=== PATIENT | male | born 1970 | race Caucasian/White ===

== ENCOUNTER 2016-11-05 12:26 | Emergency (ER) | payer OTHER ==
[~2016-11-05] VITALS: Ht 177.8 cm; Wt 75.7 kg
[~2016-11-05 12:26] MED LIST: GABA-112 PO
[2016-11-05 12:28] VITALS: TEMP 36.6; Ht 177.8 cm; Wt 75.7 kg
[2016-11-05] MEDS ORDERED: ALBUTEROL HFA 8 GM INHALER INH ONE (12:45)
--- NOTE | 2016-11-05 13:00 | DIAGNOSTIC IMAGING REPORT ---
RIGHT WRIST 5 VIEWS HISTORY: right wrist pain after falling Right COMPARISON: None. FINDINGS: There is no fracture or dislocation. Mild soft tissue swelling. There is an 8 mm lucency at the mid scaphoid. This may be due to cystic change from long-standing degenerative change or benign intraosseous lesion. Mild cartilage space narrowing at the radiocarpal joint consistent with degenerative change. No radiopaque foreign bodies. IMPRESSION: Mild soft tissue swelling within the right wrist. No acute fracture or dislocation. Electronically signed by: Albert Dorsey M.D. 11/05/2016 12:58 PM Dictated Date/Time: 11/05/2016 12:55 PM
--- NOTE | 2016-11-05 13:11 | DIAGNOSTIC IMAGING REPORT ---
RIGHT ELBOW 3 VIEWS HISTORY: Right elbow pain. COMPARISON: None. FINDINGS: There is no fracture or dislocation. Soft tissues are unremarkable. No elbow effusion. IMPRESSION: No fractures. Electronically signed by: Albert Dorsey M.D. 11/05/2016 1:09 PM Dictated Date/Time: 11/05/2016 1:07 PM
[2016-11-05 13:17] VITALS: BP 128/72; PULSE 58; O2SAT 99
[2016-11-05] MEDS ORDERED: HYDR-5688 PO (13:19)
--- NOTE | 2016-11-05 17:30 | EMERGENCY ROOM VISIT NOTE ---
ED Visit Note First contact with patient: 12:35 CHIEF COMPLAINT: Right elbow and wrist injury History of present illness: This 46-year-old white male patient complains of moderate constant right elbow and wrist pain today after a fall. He states he tripped over his dog and landed on his right arm. The pain is worse with any movement of the wrist. No laceration, no numbness or weakness. No other injury. The fall was not associated with dizziness or fainting. There were no palpitations, no chest pain, no difficulty breathing, no headache, no lightheadedness or weakness. Pain is 7/10. Swelling is visible at the wrist. He states he has been icing it for approximately 4 hours. He has loss of motion of the wrist and is concerned that it is fractured. He also has pain at the tip of the elbow. No shoulder pain or neck pain. Right-hand dominant. REVIEW OF SYSTEMS: GENERAL: No fever or chills, easy fatigue, loss of appetite, or significant weight change. NEUROLOGICAL: No headache, change in mental status, weakness, numbness, or dizziness. PMH: Supplemental sheet was not completed. Previous surgeries: None Medical history: Neuropathy Current medications: Gabapentin Allergies: NKDA Family history: Noncontributory. SOCIAL HISTORY: Patient lives at home. No tobacco use, no EtOH use. PHYSICAL EXAM: Vital Signs: Afebrile. Reviewed and filed in patient's chart. General: Well-developed, well-nourished, middle-aged white male, in no acute distress. Obvious discomfort. He is sitting on a bed. MENTAL STATUS: Alert and oriented. Skin: Warm and dry with good turgor. No rashes or lesions. No ecchymosis or erythema. The patient is not diaphoretic. No abrasions. There is edema present over the dorsum of his right wrist. Musculoskeletal: There is tenderness over the carpals and distal radius with mild swelling. Range of motion is limited secondary to pain. No obvious deformity. No pain with palpation over the metacarpal heads or digits. There is intact motion of the digits, including opposition and circumduction of the thumb. No pain with palpation of the midshaft forearm. No pain with palpation over his radial head. He does have discomfort with palpation over the epicondyles. No pain over the olecranon. Full flexion and extension of the elbow. Full pronation. He lacks approximately 20 of supination secondary to pain. No pain with palpation over the humerus or shoulder. Neurologic: The hand is warm and well perfused and the fingers have normal sensation. Median, radial, and ulnar nerve functions are clearly intact. EMERGENCY DEPARTMENT COURSE: Radiographic images obtained today of the wrist and elbow did not show any fracture. A Velcro wrist splint was placed under my direction to insure proper positioning. DIAGNOSIS: Right wrist sprain. Right elbow contusion DISCHARGE INSTRUCTIONS & TREATMENT: The patient was educated regarding today's findings. Conservative care measures were discussed. Velcro wrist splint was applied to the patient. Wear the wrist splint for 4 - 5 days until the pain subsides. Ice and elevate the wrist intermittently to reduce pain and swelling. Ibuprofen, 600mg and Tylenol 1 g every 6 hours if needed for mild to moderate pain. Prescription was provided for Oneida 5 mg to be used every 6 hours for severe pain. Driving precautions were given. Gentle motion daily. Wrist sprain handout was provided. Followup with your PCP if not improved over the next 7 days. Current/Historical Medications Scheduled Gabapentin (Neurontin), 250 MG PO TID Scheduled PRN Hydrocodone/Acetaminophen 5MG/325MG (Oneida 5MG/325MG), 1-2 TABLET PO Q6H PRN for Pain Allergies Coded Allergies: No Known Allergies (Unverified , 11/05/16) Vital Signs Date Time Temp Pulse Resp B/P Pulse Ox O2 Delivery O2 Flow Rate FiO2 11/05/16 13:17 58 20 128/72 99 Room Air 11/05/16 12:28 36.6 100 18 124/74 98 Room Air Departure Information Impression Primary Impression: Right wrist sprain Additional Impressions: Fall at home, Right elbow contusion Dispostion Home / Self-Care Condition GOOD Prescriptions Hydrocodone/Acetaminophen 5MG/325MG (Oneida 5MG/325MG) Tab 1-2 TABLET PO Q6H Y for Pain, #15 TAB For Initial Treatment Prov: Jim Pierce,P.A. 11/05/16 Forms WORK / SCHOOL INSTRUCTIONS, HOME CARE DOCUMENTATION FORM, MOTRIN USE, TYLENOL USE, IMPORTANT VISIT INFORMATION Patient Instructions A Signature Page, [facility], ED Sprain Wrist Additional Instructions Ice and elevate frequently to reduce pain and swelling Motrin 600 mg every 6 hours with food until pain resolves Tylenol or Oneida 5 mg every 6 hours as needed according to residual pain Gentle motion daily Use the splint for support until pain resolves Follow-up with your PCP for any additional concerns or return to the ED
== END 2016-11-05 13:33 | disposition home or self-care (01) ==
LOC: C.EDB 12:27 → C.EDD 13:33
DX: S63.501A Unspecified sprain of right wrist, initial encounter (principal); S50.01XA Contusion of right elbow, initial encounter; W01.0XXA Fall on same level from slipping, tripping and stumbling without subsequent striking against object, initial encounter; Y93.89 Activity, other specified; Y92.019 Unspecified place in single-family (private) house as the place of occurrence of the external cause; Y99.8 Other external cause status

== ENCOUNTER 2016-12-08 20:08 | Emergency (ER) | payer OTHER ==
[~2016-12-08] VITALS: Ht 180.3 cm; Wt 79.6 kg
[~2016-12-08 20:08] MED LIST changes: +HYDR-5688 PO
[2016-12-08 20:13] VITALS: TEMP 36.7; Ht 180.3 cm; Wt 79.6 kg
[2016-12-08] MEDS ORDERED: KETOROLAC TROMETHAMINE 60 MG/2 ML VIAL IM STA (20:40)
--- NOTE | 2016-12-08 21:34 | DIAGNOSTIC IMAGING REPORT ---
C-SPINE ROUTINE 4 OR 5 VIEWS CLINICAL HISTORY: Recent fall. Left upper extremity pain. COMPARISON STUDY: No previous studies for comparison. FINDINGS: C7 is partially obscured on this exam. No acute fracture is identified within visualized portions of the cervical spine. Vertebral body heights are maintained. Facet joints are intact. Craniocervical junction is intact. There is no abnormalities of the prevertebral soft tissues. IMPRESSION: 1. Partial obscuration of C7. No fracture or subluxation within visualized portions of the cervical spine. 2. No significant degenerative disc disease or facet arthrosis identified. Electronically signed by: Alvarado Rachel M.D. 12/08/2016 9:32 PM Dictated Date/Time: 12/08/2016 9:31 PM
--- NOTE | 2016-12-08 21:35 | DIAGNOSTIC IMAGING REPORT ---
LEFT SHOULDER MIN 2 VIEWS ROUTINE CLINICAL HISTORY: Left upper extremity pain. Recent fall. COMPARISON: None FINDINGS: Alignment of the left shoulder is anatomic. No acute fracture is identified. There is mild AC joint arthritis and minimal humeral joint arthritis. IMPRESSION: 1. No acute fracture or dislocation of the left shoulder. 2. Mild arthritis of the left acromioclavicular and glenohumeral joints. Electronically signed by: Alvarado Rachel M.D. 12/08/2016 9:33 PM Dictated Date/Time: 12/08/2016 9:33 PM
[2016-12-08] MEDS ORDERED: OXYCODONE IR HOME PACK PO ONE (21:45)
[2016-12-08] MEDS ORDERED: OXYC1TAB3 PO (21:45)
[2016-12-08] MEDS ORDERED: METH4PAK PO (21:45)
[2016-12-08 21:58] VITALS: BP 149/73; PULSE 49; O2SAT 96
--- NOTE | 2016-12-09 00:04 | EMERGENCY ROOM VISIT NOTE ---
History First contact with patient: 20:33 Chief Complaint: SHOULDER PAIN Stated Complaint: SHARP PAIN IN LF SHOULDER/ARM/ELBOW History of Present Illness The patient is a 46 year old male who presents to the Emergency Room with complaints of severe pain in his neck, left shoulder and extending into the left upper extremity with tingling and numbness of his hand and fingers. The patient reports a prior history of chronic back pain. He also occasionally has neck pain. He reports falling in the snow yesterday, causing worsening symptoms. He denies any chest pain, shortness of breath or worsening pain with deep breathing. He denies any recent illnesses, fevers or chills. He rates his discomfort a 9 out of 10. Review of Systems 10 system review was performed and was negative except for pertinent positives and negatives as indicated in history of present illness Past Medical/Surgical History Medical Problems: (1) Anxiety State Nos (2) Drug Withdrawal (3) Lumbago (4) Opioid Dependence-Unspec (5) Pneumonia, Organism Nos (6) Tobacco Use Disorder Family History Cancer Social History Smoking Status: Current Every Day Smoker Alcohol Use: occasionally Drug Use: none Marital Status: Housing Status: lives with family Occupation Status: disabled Current/Historical Medications Scheduled Methylprednisolone (Medrol Dosepak), 0 PO DAILY Scheduled PRN Oxycodone Ir (Roxicodone Ir), 1-2 TAB PO Q4H PRN for Pain Allergies Coded Allergies: No Known Allergies (Unverified , 11/05/16) Physical Exam Vital Signs Date Time Temp Pulse Resp B/P Pulse Ox O2 Delivery O2 Flow Rate FiO2 12/08/16 21:58 49 16 149/73 96 12/08/16 20:13 36.7 55 18 151/84 96 Room Air Pain Rating (0-10): 7.0 Physical Exam CONSTITUTIONAL: Healthy and well nourished. Alert and oriented X 3 with positive affect. Patient appears in moderate discomfort from pain. HEENT: Normocephalic, atraumatic. Pupils equal, round and reactive. No subconjunctival hemorrhage, epistaxis, hemotympanum, raccoon's eyes or Gordillo sign. NECK: The patient has mild discomfort of the left lower neck with movement. No palpable muscle rigidity. RESPIRATORY: Clear to auscultation bilaterally with no wheezing, crackles, rhonchi or stridor. CARDIOVASCULAR: Regular rate and rhythm with no murmurs, rubs or gallops. GASTROINTESTINAL: Bowel sounds present in all quadrants. Soft and nontender to palpation. MUSCULOSKELETAL: Examination shows minimal discomfort with range of motion of the left shoulder. No scapular winging. No tenderness to palpation of the ribs , clavicle, bicipital groove or acromioclavicular joint. Left upper extremity distal pulses are intact. INTEGUMENTARY: No rash or other significant dermatologic conditions noted. NEUROLOGIC: Left hand median, radial and ulnar motor and sensory are intact. Medical Decision & Procedures ER Provider Diagnostic Interpretation: My interpretation of cervical spine and left shoulder x-rays does not show any acute fractures or dislocations. Radiologist reports were also reviewed. Medications Administered Medications (Trade) Dose Ordered Sig/Dixon Route Start Time Stop Time Status Last Admin Dose Admin Ketorolac Tromethamine (Toradol Inj) 60 mg NOW STAT IM 12/08/16 20:40 12/08/16 20:42 DC 12/08/16 20:59 60 MG Oxycodone HCl (Roxicodone Immediate Rel 5MG Home Pack) 1 homepack UD ONCE PO 12/08/16 21:45 12/08/16 21:46 DC 12/08/16 21:54 1 HOMEPACK Prednisone (PredniSONE TAB) 60 mg NOW STAT PO 12/08/16 21:42 12/08/16 21:43 DC 12/08/16 21:54 60 MG ED Course Patient history and physical exam were performed. Nurse's notes were reviewed. The patient reports that he drove to the emergency department. He was administered Toradol 60 mg IM. X-rays of the cervical spine and left shoulder were normal. The patient was encouraged to follow up with his family doctor for further evaluation and management. I did review the [place] Prescription Drug Monitoring Program, showing that the patient has previously been on Suboxone and other opioids. Review medical records also shows that the patient has had a prior history of opioid dependence and withdrawal. The patient reports that he is now clean, but occasionally does aid pain medications for his back. Review of the [place] Prescription Drug Monitoring Program does not show any recent opioid prescription overuse. The patient was provided a home pack and prescription for OxyIR 5 mg, dispensed #15 with no refills. He was also encouraged to alternate ibuprofen and Tylenol for baseline pain relief. He was instructed to follow-up with his PCP for further management. The patient was happy with plan of care, voiced understanding of all discharge instructions, and rated his pain a 6 out of 10 at the time of discharge. [facility] Drug Monitoring Program Search Results: patient reviewed within database, see additional documentation Impression Primary Impression: Left cervical radiculopathy Departure Information Dispostion Home / Self-Care Condition GOOD Prescriptions Oxycodone Ir (Roxicodone Ir) 5 Mg Tab 1-2 TAB PO Q4H Y for Pain, #15 TAB For Initial Treatment Prov: Garrett Luna PA 12/08/16 Methylprednisolone (MEDROL DOSEPAK) 4 Mg Chris 0 PO DAILY, #1 PKT Prov: Garrett Luna PA 12/08/16 Forms HOME CARE DOCUMENTATION FORM, IMPORTANT VISIT INFORMATION Patient Instructions My [facility], ED Cervical Radiculopathy Additional Instructions Take prednisone as prescribed. Ibuprofen 800 mg and/or Tylenol 1000 mg every 8 hours. You may also alternate these medications for more effective pain relief: Ibuprofen --4 HRS--> Tylenol --4 HRS--> ibuprofen --4 HRS--> Tylenol .... OxyIR if needed for worse pain. Do not drink or drive while taking OxyIR. Follow-up with your PCP for further reevaluation and management.
== END 2016-12-08 22:00 | disposition home or self-care (01) ==
LOC: C.EDB 20:09 → C.EDD 22:00
DX: M54.12 Radiculopathy, cervical region (principal); M54.5 Low back pain; G89.29 Other chronic pain; F41.9 Anxiety disorder, unspecified; F17.200 Nicotine dependence, unspecified, uncomplicated; Z80.9 Family history of malignant neoplasm, unspecified

== ENCOUNTER 2017-10-29 15:23 | Emergency (ER) | payer OTHER ==
[~2017-10-29] VITALS: Ht 180.3 cm; Wt 77.7 kg
[2017-10-29 15:30] VITALS: TEMP 36.5; Ht 180.3 cm; Wt 77.7 kg
[2017-10-29] MEDS ORDERED: METH10CO2 PO (15:47)
[2017-10-29] MEDS ORDERED: SODIUM CHLORIDE 0.9% 1000ML 2,000 ML IV STA (15:54)
[2017-10-29] MEDS ORDERED: KETOROLAC TROMETHAMINE 30 MG/ML VIAL IV STA (15:54)
[2017-10-29] MEDS ORDERED: ONDANSETRON INJ 2 MG/ML 2 ML VIAL IV STA ×2 (15:54→18:23)
[2017-10-29] MEDS ORDERED: MoRPHine SULFATE 4 MG/ML 1 ML CARP\\VIAL IV STA (15:54)
[2017-10-29] MEDS ORDERED: GI COCKTAIL PO STA (15:56)
[2017-10-29] MEDS ORDERED: OPTIRAY 320 IV PRN (16:00)
[2017-10-29] MEDS ORDERED: LIDOCAINE HCL 2% VISC SOLN 20 ML UDC ONE (16:02)
[2017-10-29] MEDS ORDERED: ALUMINUM/MAGNESIUM SUSP 30 ML UDC ONE (16:03)
[2017-10-29 16:19] LABS: BASO % 0.1 %; BASO ABS # 0.01 K/uL (0-0.2); HEMATOCRIT 36.6 % (42-52); HEMOGLOBIN 12.8 g/dL (14.0-18.0); IG# 0.02 K/uL (0.00-0.02); LYMPH % 17.6 %; LYMPH ABS # 1.84 K/uL (1.2-3.4); MEAN CELL VOLUME 87.6 fL (80-100); MEAN CORPUSCULAR HEMOGLOBIN 30.6 pg (25-34); MEAN PLATELET VOLUME 9.2 fL (7.4-10.4); MONO % 5.6 %; MONO ABS # 0.59 K/uL (0.11-0.59); NEUT % 76.5 %; NEUT ABS # 8.01 K/uL (1.4-6.5); PLATELET COUNT 250 K/uL (130-400); RED CELL DISTRIBUTION WIDTH SD 41.9 fL (36.4-46.3); WHITE BLOOD COUNT 10.47 K/uL (4.8-10.8)
[2017-10-29 16:31] LABS: ALBUMIN 4.3 gm/dl (3.4-5.0); ALT/SGPT 18 U/L (12-78); BLOOD UREA NITROGEN 16 mg/dl (7-18); CALCIUM 9.4 mg/dl (8.5-10.1); CARBON DIOXIDE 23 mmol/L (21-32); CREATININE 0.82 mg/dl (0.60-1.40); GLUCOSE 114 mg/dl (70-99); LIPASE 75 U/L (73-393); POTASSIUM 3.2 mmol/L (3.5-5.1); SODIUM 131 mmol/L (136-145)
[2017-10-29 16:36] LABS: ALKALINE PHOSPHATASE 79 U/L (45-117); AST/SGOT 25 U/L (15-37); TOTAL PROTEIN 7.5 gm/dl (6.4-8.2)
--- NOTE | 2017-10-29 16:44 | DIAGNOSTIC IMAGING REPORT ---
SINGLE VIEW CHEST CLINICAL HISTORY: Atypical chest pain. FINDINGS: An AP, portable, upright chest radiograph is compared to study dated 07/14/2015. Correlation is made with chest CT dated 08/15/2010. The examination is degraded by portable technique and patient rotation. The heart is enlarged. The pulmonary vasculature is noncongested. The lungs and pleural spaces are clear. No pneumothorax is seen. The bony thorax is grossly intact. IMPRESSION: Mild cardiac enlargement with no acute cardiopulmonary abnormality. Electronically signed by: Glenn Méndez M.D. 10/29/2017 4:43 PM Dictated Date/Time: 10/29/2017 4:42 PM
--- NOTE | 2017-10-29 17:48 | DIAGNOSTIC IMAGING REPORT ---
CT SCAN OF THE ABDOMEN AND PELVIS WITH IV CONTRAST CLINICAL HISTORY: Generalized abdominal pain. COMPARISON STUDY: No priors. TECHNIQUE: Following the IV administration of 92 cc of Optiray 320, CT scan of the abdomen and pelvis is performed from the lung bases to the proximal femora. Images are reviewed in the axial, sagittal, and coronal planes. IV contrast was administered without complication. A dose lowering technique was utilized adhering to the principles of ALARA. CT DOSE: 406.52 mGy.cm FINDINGS: Lung bases: The heart is top normal in size and without pericardial effusion. The lung bases are clear noting dependent atelectasis. There is a small hiatal hernia. Mild wall thickening is questioned in the distal esophagus. Liver: The contrast-enhanced liver is normal in size, contour, and attenuation. There is mild central intrahepatic biliary ductal dilatation. The hepatic veins and portal veins are patent. Gallbladder: Gallstones are noted. The gallbladder is mildly distended but otherwise normal in appearance. The common bile duct is dilated measuring up to 12 mm. Spleen: Normal in size and attenuation. Pancreas: Unremarkable. Adrenal glands: Unremarkable. Kidneys: The contrast enhanced kidneys are normal in size and without hydronephrosis. The kidneys enhance symmetrically. There is a 9 mm nonobstructing calculus in the left upper pole. Abdominal vasculature: The abdominal aorta is normal in course and caliber noting mild to moderate age-advanced atherosclerotic calcification. Bowel: There is moderate to severe constipation. There is a large volume of stool in the rectum. No bowel obstruction is seen. The appendix is not identified. Peritoneum: There is no intraperitoneal free air or abdominal ascites. Lymphadenopathy: None. Pelvic viscera: The bladder, prostate, and seminal vesicles are normal as visualized. Skeletal structures: There are postoperative changes from L4 -S1 spinal fusion. No lytic or blastic lesions are seen. IMPRESSION: 1. Moderate to severe constipation. No bowel obstruction is identified. 2. Cholelithiasis without CT evidence of acute cholecystitis. There is nonspecific intra and extrahepatic biliary ductal dilatation. Correlation with clinical findings and serum bilirubin levels will be required. If further assessment is desired then ultrasound would be appropriate. 3. Nonobstructing left renal calculus. 4. Circumferential wall thickening is suggested in the distal esophagus. Correlate clinically for evidence of esophagitis. If further assessment is desired then endoscopy would be appropriate. 5. Additional findings as above. Electronically signed by: Glenn Méndez M.D. 10/29/2017 5:47 PM Dictated Date/Time: 10/29/2017 5:38 PM
--- NOTE | 2017-10-29 19:21 | DIAGNOSTIC IMAGING REPORT ---
ULTRASOUND RIGHT UPPER QUADRANT ABDOMEN CLINICAL HISTORY: Common bile duct dilatation. Cholelithiasis. COMPARISON STUDY: Abdominal CT dated 10/29/2017. TECHNIQUE: Real-time, grayscale, and color flow sonography of the right upper quadrant of the abdomen was performed. Images are reviewed in the transverse and longitudinal planes. FINDINGS: Liver: The liver is normal in size and echotexture. There is no intrahepatic biliary ductal dilatation. The main portal vein is patent. Gallbladder: Shadowing calcified gallstones are identified. There is no gallbladder wall thickening or pericholecystic fluid. A sonographic Thakur's sign is reportedly absent. The common bile duct measures up to 0.6 cm in diameter. Pancreas: Visualized portions of the pancreatic head are normal in appearance. The majority of the pancreas was not well visualized. There is prominence of the pancreatic duct which measures up to 4 mm the pancreas. Right kidney: Survey images of the right kidney demonstrate normal size and echotexture. There is no hydronephrosis. Ascites: None. IMPRESSION: Cholelithiasis without sonographic evidence of acute cholecystitis. Electronically signed by: Glenn Méndez M.D. 10/29/2017 7:19 PM Dictated Date/Time: 10/29/2017 7:18 PM
[2017-10-29] MEDS ORDERED: ONDA4TAB46 PO (19:46)
[2017-10-29 20:00] VITALS: BP 149/78; PULSE 52; O2SAT 99
[2017-10-29] MEDS ORDERED: ONDANSETRON HOME PACK 4MG OD TAB PO ONE (20:00)
--- NOTE | 2017-10-29 21:27 | EMERGENCY ROOM VISIT NOTE ---
History Report prepared by Renéeibelliott: Matthew Pickens Under the Supervision of: Dr. Harjeet Concepcion D.O. First contact with patient: 15:40 Chief Complaint: VOMITING Stated Complaint: ILLNESS History of Present Illness The patient is a 47 year old male who presents to the Emergency Room with complaints of intermittent vomiting that began two days ago. He rates his discomfort as a 7/10 in severity. The patient states that he became cold two days ago and then started to vomit. He reports that he has been vomiting water, any food he eats, and bile. The patient states he has also been experiencing abdominal pain starting yesterday. He reports that he began to experience chest pain following his abdominal pain, which he describes as a burning sensation. The patient reports that he has also been experiencing rhinorrhea. He states that he vomited 10-15 times today, with his last episode 10 minutes ago. He denies headache, change in vision, fevers, cough, shortness of breath, diarrhea , pain with urination, and melena. The patient states that his last urination was yesterday and his last bowel movement was two days ago. He reports a history of an appendectomy. The patient denies a history of diabetes, hyperlipidemia, hypertension, cholecystectomy, and other surgeries. He denies drugs, alcohol, and sick contact. Source of History: patient Onset: two days ago Position: other (global) Symptom Intensity: 7/10 Timing: intermittent Associated Symptoms: + chest pain, + nausea, + abdominal pain, No fevers, No headache, No cough, No melena, No diarrhea, No urinary symptoms Review of Systems See HPI for pertinent positives & negatives. A total of 10 systems reviewed and were otherwise negative. Past Medical & Surgical Medical Problems: (1) Anxiety State Nos (2) Drug Withdrawal (3) Lumbago (4) Opioid Dependence-Unspec (5) Pneumonia, Organism Nos (6) Tobacco Use Disorder Family History Cancer Social History Smoking Status: Current Every Day Smoker Alcohol Use: occasionally Drug Use: none Marital Status: Housing Status: lives with family Occupation Status: disabled Current/Historical Medications Scheduled Methadone Hcl (Methadose), Unknown Dose PO DAILY Scheduled PRN Ondansetron Hcl (Zofran), 4 MG PO TID PRN for Nausea Allergies Coded Allergies: No Known Allergies (Unverified , 10/29/17) Physical Exam Vital Signs Date Time Temp Pulse Resp B/P (MAP) Pulse Ox O2 Delivery O2 Flow Rate FiO2 10/29/17 20:00 52 17 149/78 99 10/29/17 19:05 63 17 153/85 99 Room Air 10/29/17 17:32 55 18 164/79 99 Room Air 10/29/17 15:30 36.5 71 20 140/81 100 Room Air Physical Exam GENERAL: Sitting up in bed, tachypneic, in moderate distress, holding abdomen. EYE EXAM: normal conjunctiva. OROPHARYNX: no exudate, no erythema, lips, buccal mucosa, and tongue normal and mucous membranes are dry NECK: supple, no nuchal rigidity, no adenopathy, non-tender LUNGS: Clear to auscultation. Normal chest wall mechanics HEART: no murmurs, S1 normal and S2 normal CHEST: Reproducible chest wall tenderness anteriorly. ABDOMEN: abdomen soft, old scarring in right lower quadrant, mild diffuse tenderness, normo-active bowel sounds, no masses, no rebound or guarding. BACK: Back is symmetrical on inspection and there is no deformity, no midline tenderness, no CVA tenderness. SKIN: no rashes and no bruising UPPER EXTREMITIES: upper extremities are grossly normal. LOWER EXTREMITIES: No pitting edema. NEURO EXAM: Normal sensorium, cranial nerves II-XII grossly intact, normal speech, no gross weakness of arms, no gross weakness of legs. Gross sensation intact. Medical Decision & Procedures ER Provider Diagnostic Interpretation: Radiology results as stated below per my review and the radiologist's interpretation: CT SCAN OF THE ABDOMEN AND PELVIS WITH IV CONTRAST CLINICAL HISTORY: Generalized abdominal pain. COMPARISON STUDY: No priors. TECHNIQUE: Following the IV administration of 92 cc of Optiray 320, CT scan of the abdomen and pelvis is performed from the lung bases to the proximal femora. Images are reviewed in the axial, sagittal, and coronal planes. IV contrast was administered without complication. A dose lowering technique was utilized adhering to the principles of ALARA. CT DOSE: 406.52 mGy.cm FINDINGS: Lung bases: The heart is top normal in size and without pericardial effusion. The lung bases are clear noting dependent atelectasis. There is a small hiatal hernia. Mild wall thickening is questioned in the distal esophagus. Liver: The contrast-enhanced liver is normal in size, contour, and attenuation. There is mild central intrahepatic biliary ductal dilatation. The hepatic veins and portal veins are patent. Gallbladder: Gallstones are noted. The gallbladder is mildly distended but otherwise normal in appearance. The common bile duct is dilated measuring up to 12 mm. Spleen: Normal in size and attenuation. Pancreas: Unremarkable. Adrenal glands: Unremarkable. Kidneys: The contrast enhanced kidneys are normal in size and without hydronephrosis. The kidneys enhance symmetrically. There is a 9 mm nonobstructing calculus in the left upper pole. Abdominal vasculature: The abdominal aorta is normal in course and caliber noting mild to moderate age-advanced atherosclerotic calcification. Bowel: There is moderate to severe constipation. There is a large volume of stool in the rectum. No bowel obstruction is seen. The appendix is not identified. Peritoneum: There is no intraperitoneal free air or abdominal ascites. Lymphadenopathy: None. Pelvic viscera: The bladder, prostate, and seminal vesicles are normal as visualized. Skeletal structures: There are postoperative changes from L4 -S1 spinal fusion. No lytic or blastic lesions are seen. IMPRESSION: 1. Moderate to severe constipation. No bowel obstruction is identified. 2. Cholelithiasis without CT evidence of acute cholecystitis. There is nonspecific intra and extrahepatic biliary ductal dilatation. Correlation with clinical findings and serum bilirubin levels will be required. If further assessment is desired then ultrasound would be appropriate. 3. Nonobstructing left renal calculus. 4. Circumferential wall thickening is suggested in the distal esophagus. Correlate clinically for evidence of esophagitis. If further assessment is desired then endoscopy would be appropriate. 5. Additional findings as above. Electronically signed by: Glenn Méndez M.D. 10/29/2017 5:47 PM Dictated Date/Time: 10/29/2017 5:38 PM SINGLE VIEW CHEST CLINICAL HISTORY: Atypical chest pain. FINDINGS: An AP, portable, upright chest radiograph is compared to study dated 07/14/2015. Correlation is made with chest CT dated 08/15/2010. The examination is degraded by portable technique and patient rotation. The heart is enlarged. The pulmonary vasculature is noncongested. The lungs and pleural spaces are clear. No pneumothorax is seen. The bony thorax is grossly intact. IMPRESSION: Mild cardiac enlargement with no acute cardiopulmonary abnormality. Electronically signed by: Glenn Méndez M.D. 10/29/2017 4:43 PM Dictated Date/Time: 10/29/2017 4:42 PM ULTRASOUND RIGHT UPPER QUADRANT ABDOMEN CLINICAL HISTORY: Common bile duct dilatation. Cholelithiasis. COMPARISON STUDY: Abdominal CT dated 10/29/2017. TECHNIQUE: Real-time, grayscale, and color flow sonography of the right upper quadrant of the abdomen was performed. Images are reviewed in the transverse and longitudinal planes. FINDINGS: Liver: The liver is normal in size and echotexture. There is no intrahepatic biliary ductal dilatation. The main portal vein is patent. Gallbladder: Shadowing calcified gallstones are identified. There is no gallbladder wall thickening or pericholecystic fluid. A sonographic Thakur's sign is reportedly absent. The common bile duct measures up to 0.6 cm in diameter. Pancreas: Visualized portions of the pancreatic head are normal in appearance. The majority of the pancreas was not well visualized. There is prominence of the pancreatic duct which measures up to 4 mm the pancreas. Right kidney: Survey images of the right kidney demonstrate normal size and echotexture. There is no hydronephrosis. Ascites: None. IMPRESSION: Cholelithiasis without sonographic evidence of acute cholecystitis. Electronically signed by: Glenn Méndez M.D. 10/29/2017 7:19 PM Dictated Date/Time: 10/29/2017 7:18 PM Laboratory Results 10/29/17 16:00 Red Blood Count 4.18, Mean Corpuscular Volume 87.6, Mean Corpuscular Hemoglobin 30.6, Mean Corpuscular Hemoglobin Concent 35.0, Mean Platelet Volume 9.2, Neutrophils (%) (Auto) 76.5, Lymphocytes (%) (Auto) 17.6, Monocytes (%) (Auto) 5.6, Eosinophils (%) (Auto) 0.0, Basophils (%) (Auto) 0.1, Neutrophils # (Auto) 8.01, Lymphocytes # (Auto) 1.84, Monocytes # (Auto) 0.59, Eosinophils # (Auto) 0.00, Basophils # (Auto) 0.01 10/29/17 16:00 Test 10/29/17 16:00 10/29/17 19:00 White Blood Count 10.47 K/uL (4.8-10.8) Red Blood Count 4.18 M/uL (4.7-6.1) Hemoglobin 12.8 g/dL (14.0-18.0) Hematocrit 36.6 % (42-52) Mean Corpuscular Volume 87.6 fL (80-100) Mean Corpuscular Hemoglobin 30.6 pg (25-34) Mean Corpuscular Hemoglobin Concent 35.0 g/dl (32-36) Platelet Count 250 K/uL (130-400) Mean Platelet Volume 9.2 fL (7.4-10.4) Neutrophils (%) (Auto) 76.5 % Lymphocytes (%) (Auto) 17.6 % Monocytes (%) (Auto) 5.6 % Eosinophils (%) (Auto) 0.0 % Basophils (%) (Auto) 0.1 % Neutrophils # (Auto) 8.01 K/uL (1.4-6.5) Lymphocytes # (Auto) 1.84 K/uL (1.2-3.4) Monocytes # (Auto) 0.59 K/uL (0.11-0.59) Eosinophils # (Auto) 0.00 K/uL (0-0.5) Basophils # (Auto) 0.01 K/uL (0-0.2) RDW Standard Deviation 41.9 fL (36.4-46.3) RDW Coefficient of Variation 13.0 % (11.5-14.5) Immature Granulocyte % (Auto) 0.2 % Immature Granulocyte # (Auto) 0.02 K/uL (0.00-0.02) Anion Gap 12.0 mmol/L (3-11) Est Creatinine Clear Calc Drug Dose 116.0 ml/min Estimated GFR () 120.3 Estimated GFR (Non- 103.8 BUN/Creatinine Ratio 20.1 (10-20) Calcium Level 9.4 mg/dl (8.5-10.1) Total Bilirubin 0.8 mg/dl (0.2-1) Direct Bilirubin 0.2 mg/dl (0-0.2) Aspartate Amino Transf (AST/SGOT) 25 U/L (15-37) Alanine Aminotransferase (ALT/SGPT) 18 U/L (12-78) Alkaline Phosphatase 79 U/L (45-117) Troponin I < 0.015 ng/ml (0-0.045) Total Protein 7.5 gm/dl (6.4-8.2) Albumin 4.3 gm/dl (3.4-5.0) Lipase 75 U/L (73-393) Urine Color YELLOW Urine Appearance CLEAR (CLEAR) Urine pH 8.0 (4.5-7.5) Urine Specific Dunlap 1.025 (1.000-1.030) Urine Protein NEG (NEG) Urine Glucose (UA) NEG (NEG) Urine Ketones TRACE (NEG) Urine Occult Blood NEG (NEG) Urine Nitrite NEG (NEG) Urine Bilirubin NEG (NEG) Urine Urobilinogen NEG (NEG) Urine Leukocyte Esterase NEG (NEG) Urine WBC (Auto) 0 /hpf (0-5) Urine RBC (Auto) 0-4 /hpf (0-4) Urine Hyaline Casts (Auto) 0 /lpf (0-5) Urine Epithelial Cells (Auto) 10-20 /lpf (0-5) Urine Bacteria (Auto) NEG (NEG) Laboratory results per my review. Medications Administered Medications (Trade) Dose Ordered Sig/Dixon Route Start Time Stop Time Status Last Admin Dose Admin Sodium Chloride 2,000 ml @ 999 mls/hr Q2H1M STAT IV 10/29/17 15:54 10/29/17 17:54 DC 10/29/17 16:08 999 MLS/HR Ondansetron HCl (Zofran Inj) 4 mg NOW STAT IV 10/29/17 15:54 10/29/17 15:57 DC 10/29/17 16:10 4 MG Ketorolac Tromethamine (Toradol Inj) 30 mg NOW STAT IV 10/29/17 15:54 10/29/17 15:57 DC 10/29/17 16:10 30 MG Morphine Sulfate (MoRPHine SULFATE INJ) 4 mg NOW STAT IV 10/29/17 15:54 10/29/17 15:57 DC 10/29/17 16:11 4 MG Lidocaine HCl (Viscous Lidocaine 2% Soln) 20 ml STK-MED ONCE .ROUTE 10/29/17 16:02 10/29/17 16:03 DC 10/29/17 16:11 20 ML Al Hydroxide/Mg Hydroxide (Maalox Susp) 30 ml STK-MED ONCE .ROUTE 10/29/17 16:03 10/29/17 16:04 DC 10/29/17 16:11 30 ML Ondansetron HCl (Zofran Inj) 4 mg NOW STAT IV 10/29/17 18:23 10/29/17 18:24 DC 10/29/17 18:54 4 MG Ondansetron HCl (ZOFRAN ODT 4MG Home Pack) 1 homepack UD ONCE PO 10/29/17 20:00 10/29/17 20:01 DC 10/29/17 20:00 1 HOMEPACK ECG Indication: chest pain Rate (beats per minute): 65 Rhythm: sinus rhythm Findings: no ectopy, other (Normal axis, poor baseline inferior) ED Course ED COURSE: Vital signs were reviewed and showed hypertensive. The patients medical record was reviewed The above diagnostic studies were performed and reviewed. ED treatments and interventions as stated above. 1548: The patient was evaluated in room C05. A complete history and physical examination was performed. 1554: Ordered Morphine Sulfate 4 mg IV, Toradol Injection 30 mg IV, Zofran INjection 4 mg IV, Sodium Chloride 2000 ml @ 999 mls/hr IV. 1556: Ordered Gi Cocktail 24 ml PO. 1602: Ordered Lidocaine HCl 20 ml IV. 1603: Ordered Maalox Susp 30 ml IV. 1820: I reevaluated the patient and his chest discomfort is relieved after the GI cocktail. He has not vomited here in the ED. 1822: Ordered Zofran Injection 4 mg IV. 1943: Upon reevaluation, the patient is feeling better and handling fluids. I discussed the findings and the treatment plan with the patient. He verbalizes agreement and understanding. The patient was discharged home. 1999: Ordered Ondansetron HCl 1 homepack PO. Medical Decision Differential diagnoses includes but is not limited to gastritis, peptic ulcer disease, GERD, gallbladder disease, pancreatitis, small bowel obstruction, acute coronary syndrome, pericarditis, ischemic bowel, irritable bowel disease, irritable bowel syndrome, appendicitis, diverticulitis, malignancy, hernia, urinary tract infection, torsion, [/ectopic (if female)], perforation, trauma, infectious. Patient is a 47-year-old male who presents to ER for diffuse muscle cramps associated with vomiting. He has been unable to keep anything down for the past 24 hours. No diarrhea. Vitals were fairly unremarkable. CBC was unremarkable. BMP shows mild hyponatremia and hypokalemia. Do favor secondary to dehydration. LFTs all bilirubin, troponin and lipase normal. Chest pain present for longer than 8 hours and is reproducible. Chest x-ray unremarkable. EKG nondiagnostic. UA was negative. Patient was given 2 L normal saline along with Zofran. CT did show slight fullness in the biliary system. Ultrasound was performed was unremarkable. Patient was able tolerate fluids orally. He was discharged with Zofran to follow-up with PCP. Discussed with Pt concerning signs and symptoms to watch out for. Pt was instructed to follow up with their PCP and discussed with the patient their option to return to the ED at anytime for persistent or worsening symptoms. The appropriate anticipatory guidance and out-patient management, including indications for return to the emergency department, were explained at length to the patient and understood. Medication Reconcilliation Current Medication List: was personally reviewed by me Blood Pressure Screening Patient's blood pressure: Elevated blood pressure Blood pressure disposition: Elevated BP felt to be situational Impression Primary Impression: Vomiting Additional Impression: Hypokalemia Scribe Attestation The scribe's documentation has been prepared under my direction and personally reviewed by me in its entirety. I confirm that the note above accurately reflects all work, treatment, procedures, and medical decision making performed by me. Departure Information Dispostion Home / Self-Care Prescriptions Ondansetron Hcl (ZOFRAN) 4 Mg Tab 4 MG PO TID Y for Nausea, #30 TAB Prov: Harjeet Concepcion, DO 10/29/17 Referrals Jana Burrell M.D. (PCP) Forms HOME CARE DOCUMENTATION FORM, IMPORTANT VISIT INFORMATION Patient Instructions ED Nausea Vomiting, My [facility] Additional Instructions Please follow up with your primary care doctor with in the next 24 hours. Any worsening of your symptoms, please return to the ED immediately. This includes any fevers greater than 100.4, worsening pain, chest pain, shortness breath, persistent nausea, vomiting, unable to eat or drink, or any other concerning signs or symptoms from your standpoint. Please take Zofran as needed for nausea and vomiting. Problem Qualifiers Primary Impression: Vomiting Vomiting type: unspecified Vomiting Intractability: unspecified Nausea presence: with nausea Qualified Codes: R11.2 - Nausea with vomiting, unspecified
== END 2017-10-29 20:00 | disposition home or self-care (01) ==
LOC: C.EDB 15:25 → C.EDC 20:00
DX: R11.10 Vomiting, unspecified (principal); E87.6 Hypokalemia; E87.1 Hypo-osmolality and hyponatremia; R07.89 Other chest pain; F17.200 Nicotine dependence, unspecified, uncomplicated; Z79.891 Long term (current) use of opiate analgesic; Z90.89 Acquired absence of other organs; Z80.9 Family history of malignant neoplasm, unspecified

== ENCOUNTER 2018-01-07 12:08 | Emergency (ER) | payer OTHER ==
[~2018-01-07] VITALS: Ht 177.8 cm; Wt 77.3 kg
[~2018-01-07 12:08] MED LIST changes: -GABA-112 PO; -HYDR-5688 PO; +METH10CO2 PO; +ONDA4TAB46 PO
[2018-01-07 12:27] VITALS: TEMP 36.7; Ht 177.8 cm; Wt 77.3 kg
--- NOTE | 2018-01-07 12:54 | EMERGENCY ROOM VISIT NOTE ---
ED Visit Note First contact with patient: 12:36 CHIEF COMPLAINT: Right rib pain HISTORY OF PRESENTING ILLNESS: This is a 47-year-old male who presents the emergency department with complaint of right rib pain after a fall 3 days ago. He states he was walking his dog and tripped, fell forward and landed on his front right ribs. Denies hitting head, denies LOC, denies any other injuries from the fall. He describes the pain as constant, dull, throbbing, 6/10. He has taken Motrin and tried heat with some improvement. He denies any headache, neck pain, shortness of breath, hemoptysis, abdominal pain, vomiting or diarrhea , urinary complaints, or rash. He reports a history of traumatic back injury and fusion surgery several years ago, and has chronic back pain from this. He denies any worsening of his back pain after the fall. REVIEW OF SYSTEMS: A complete 10 point review of systems was reviewed with the patient with pertinent positives and negatives as per history of present illness. All else were negative. PAST MEDICAL HISTORY: Reviewed in chart. SOCIAL HISTORY: Lives at home. He is a current everyday smoker. ALLERGIES: No known allergies. PHYSICAL EXAM: CONSTITUTIONAL: Pleasant and cooperative. No acute distress. Well appearing and well nourished. HEENT: Normocephalic, atraumatic. Pupils equal, round and reactive to light, EOMI. TMs normal. Pharynx normal. NECK: Supple, full active range of motion without discomfort. RESPIRATORY: Diminished in the bases, but otherwise clear to auscultation bilaterally with no wheezing, crackles, rhonchi or stridor. Equal expansion bilaterally. CARDIOVASCULAR: Regular rate and rhythm with no murmurs, rubs or gallops. Normal peripheral perfusion. No edema. CHEST WALL: Tenderness to palpation over the right anterior ribs 3 through 7, no ecchymosis, abrasions, or swelling noted. No crepitus. GASTROINTESTINAL: Soft, nontender, nondistended. No palpable masses or HSM. Bowel sounds present in all quadrants. No CVA tenderness. MUSCULOSKELETAL: Full range of motion of all joints without discomfort. INTEGUMENTARY: No rash or other significant dermatologic conditions noted. NEUROLOGIC: Alert and oriented X 4 with normal affect. Cranial nerves II-XII grossly intact. No focal neurologic deficits noted. Normal strength and sensation all 4 extremities. Normal speech. Normal gait observed. ED COURSE AND MEDICAL DECISION MAKING: CC: Patient presenting with complaint of right rib pain after fall DIFFERENTIAL DIAGNOSIS: Includes, but not limited to rib contusion, fracture, pulmonary contusion, hemothorax, pneumothorax, costochondritis, musculoskeletal pain, among others. IMAGING: PA CHEST WITH RIGHT-SIDED RIB SERIES CLINICAL HISTORY: Fall. Right chest wall pain. FINDINGS: A PA chest radiograph with 5 additional views may right-sided rib series is compared to study dated 10/29/2017. The cardiomediastinal silhouette is unremarkable. The lungs and pleural spaces are clear. No pneumothorax is seen. There is no radiographic evidence of right-sided rib fracture on the rib series as clinically queried. The remainder of the bony thorax is grossly intact. Fusion hardware is noted in the lumbar spine. IMPRESSION: 1. The lungs are clear. 2. There is no radiographic evidence of right-sided rib fracture as clinically queried. MEDICATION RECONCILIATION: I attest that I have personally reviewed the patient 's current medication list. INITIAL VITAL SIGNS REVIEW: I reviewed the patient's initial vital signs and interpret them as follows: T: Afebrile; BP: Normotensive; HR: Bradycardia; RR : Within normal; Pulse Ox: Within normal limits on room. Blood pressure screening: The patient was found to have normal blood pressure on screening and does not require follow-up for repeat blood pressure check. SUMMARY: Patient was evaluated at bedside, history and physical exam performed. Patient is alert and oriented, no acute distress, resting calmly in the exam room. He does have reproducible tenderness over the right anterior ribs approximately 3 through 7, no crepitus or obvious fracture, no ecchymosis or swelling. Orders were placed at bedside for rib and chest films to evaluate for rib fracture and other traumatic injury. Imaging reviewed as above, no evidence of acute traumatic injury of the chest. Patient reassessed multiple times throughout ED stay, he reports improvement in his pain after IM Toradol. Patient was updated on all results and plan for discharge, he was encouraged to follow closely with his primary care provider if his symptoms are not improving in the next few days. Patient was provided with incentive spirometer and instructed in its use. Patient was also given strict return precautions should his symptoms worsen, he verbalized understanding. Patient was discharged home in stable condition and ambulatory. Current/Historical Medications No Active Prescriptions or Reported Meds Allergies Coded Allergies: No Known Allergies (Unverified , 01/07/18) Vital Signs Date Time Temp Pulse Resp B/P (MAP) Pulse Ox O2 Delivery O2 Flow Rate FiO2 01/07/18 15:10 60 16 121/71 95 01/07/18 12:27 36.7 57 20 118/68 96 Room Air Medications Administered Medications (Trade) Dose Ordered Sig/Dixon Route Start Time Stop Time Status Last Admin Dose Admin Ketorolac Tromethamine (Toradol Inj) 60 mg NOW STAT IM 01/07/18 13:53 01/07/18 13:54 DC 01/07/18 14:02 60 MG Departure Information Impression Primary Impression: Contusion of rib on right side Dispostion Home / Self-Care Condition GOOD Prescriptions No Active Prescriptions or Reported Meds Referrals No Doctor, Assigned (PCP) Patient Instructions ED Contusion Rib, My [facility] Additional Instructions You have been treated in the Emergency Department for rib contusion. For pain control, you can use the following blic-spx-mkhpjst medicines (if >12 yo): - Regular strength (325mg/tab) Tylenol (acetaminophen) 2 tabs every 4-6 hours as needed. Do not exceed 10 tablets in a 24 hour period. Avoid taking more than 3000mg of Tylenol per day. This includes any other sources of acetaminophen you may take on a regular basis. - Regular strength (200 mg/tab) Advil (ibuprofen) 3 tabs every 6-8 hours as needed. Do not exceed a dose of 2400 mg per day. Apply moist heat to the area 3-4 times a day for 30 minutes at a time for comfort. Use the incentive spirometer 10 times every hour while awake to help prevent pneumonia. To minimize your discomfort, you can hug a pillow while coughing or sneezing. Additionally, you should continue to force yourself to take nice, deep breaths. Full expansion of the lungs is necessary to prevent the accumulation of fluid in the lung tissue and development of pneumonia. You should schedule a follow-up appointment in 2-3 days with your Primary Care Provider for further evaluation and management of your pain. Return to the Emergency Department if your current symptoms worsen despite treatment course outlined above, or if you develop any of the following symptoms : severe worsening pain, development of a wet cough, bloody cough, fever, chills , or increased shortness of breath. Work Instructions Return To Work: 2 days Problem Qualifiers Primary Impression: Contusion of rib on right side Encounter type: initial encounter Qualified Codes: S20.211A - Contusion of right front wall of thorax, initial encounter
--- NOTE | 2018-01-07 13:42 | DIAGNOSTIC IMAGING REPORT ---
PA CHEST WITH RIGHT-SIDED RIB SERIES CLINICAL HISTORY: Fall. Right chest wall pain. FINDINGS: A PA chest radiograph with 5 additional views may right-sided rib series is compared to study dated 10/29/2017. The cardiomediastinal silhouette is unremarkable. The lungs and pleural spaces are clear. No pneumothorax is seen. There is no radiographic evidence of right-sided rib fracture on the rib series as clinically queried. The remainder of the bony thorax is grossly intact. Fusion hardware is noted in the lumbar spine. IMPRESSION: 1. The lungs are clear. 2. There is no radiographic evidence of right-sided rib fracture as clinically queried. Electronically signed by: Glenn Méndez M.D. 01/07/2018 1:40 PM Dictated Date/Time: 01/07/2018 1:38 PM
[2018-01-07] MEDS ORDERED: KETOROLAC TROMETHAMINE 60 MG/2 ML VIAL IM STA (13:53)
[2018-01-07 15:10] VITALS: BP 121/71; PULSE 60; O2SAT 95
== END 2018-01-07 15:07 | disposition home or self-care (01) ==
LOC: C.EDB 12:10 → C.EDD 15:07
DX: S20.211A Contusion of right front wall of thorax, initial encounter (principal); W01.0XXA Fall on same level from slipping, tripping and stumbling without subsequent striking against object, initial encounter; Y92.89 Other specified places as the place of occurrence of the external cause; Y93.K1 Activity, walking an animal; F17.210 Nicotine dependence, cigarettes, uncomplicated

== ENCOUNTER 2018-03-10 17:31 | Emergency (ER) | payer OTHER ==
[~2018-03-10] VITALS: Ht 177.8 cm; Wt 76.0 kg
[2018-03-10 17:35] VITALS: TEMP 36.9; Ht 177.8 cm; Wt 76.0 kg
[2018-03-10] MEDS ORDERED: LORAZEPAM 2 MG/ML 1 ML VIAL IV STA (17:49)
[2018-03-10] MEDS ORDERED: SODIUM CHLORIDE 0.9% 1000ML 1,000 ML IV STA (17:49)
[2018-03-10 18:13] VITALS: O2SAT 96
[2018-03-10 18:16] LABS: BASO % 0.1 %; BASO ABS # 0.01 K/uL (0-0.2); HEMATOCRIT 40.4 % (42-52); HEMOGLOBIN 14.3 g/dL (14.0-18.0); IG# 0.02 K/uL (0.00-0.02); LYMPH % 13.7 %; LYMPH ABS # 1.69 K/uL (1.2-3.4); MEAN CELL VOLUME 86.7 fL (80-100); MEAN CORPUSCULAR HEMOGLOBIN 30.7 pg (25-34); MEAN CORPUSCULAR HGB CONC 35.4 g/dl (32-36); MEAN PLATELET VOLUME 8.8 fL (7.4-10.4); MONO % 4.9 %; NEUT % 81.1 %; NEUT ABS # 10.05 K/uL (1.4-6.5); PLATELET COUNT 267 K/uL (130-400); RED CELL DISTRIBUTION WIDTH CV 13.1 % (11.5-14.5); RED CELL DISTRIBUTION WIDTH SD 41.5 fL (36.4-46.3); WHITE BLOOD COUNT 12.37 K/uL (4.8-10.8)
--- NOTE | 2018-03-10 18:22 | EMERGENCY ROOM VISIT NOTE ---
ED Visit Note First contact with patient: 17:41 I have seen and examined this patient with Orlando Gamboa and generally agree with the treatment plan as discussed. Current/Historical Medications No Active Prescriptions or Reported Meds Allergies Coded Allergies: No Known Allergies (Unverified , 01/07/18) Vital Signs Date Time Temp Pulse Resp B/P (MAP) Pulse Ox O2 Delivery O2 Flow Rate FiO2 03/10/18 18:15 61 03/10/18 18:13 96 Room Air 2.0 03/10/18 18:12 86 Room Air 03/10/18 17:50 100 Room Air 03/10/18 17:35 36.9 96 18 155/79 98 Room Air Laboratory Results 03/10/18 17:50 Red Blood Count 4.66, Mean Corpuscular Volume 86.7, Mean Corpuscular Hemoglobin 30.7, Mean Corpuscular Hemoglobin Concent 35.4, Mean Platelet Volume 8.8, Neutrophils (%) (Auto) 81.1, Lymphocytes (%) (Auto) 13.7, Monocytes (%) (Auto) 4.9, Eosinophils (%) (Auto) 0.0, Basophils (%) (Auto) 0.1, Neutrophils # (Auto) 10.05, Lymphocytes # (Auto) 1.69, Monocytes # (Auto) 0.60, Eosinophils # (Auto) 0.00, Basophils # (Auto) 0.01 Test 03/10/18 17:49 03/10/18 17:50 03/10/18 18:02 Creatine Kinase MB Ratio (0-3.0) White Blood Count 12.37 K/uL (4.8-10.8) Red Blood Count 4.66 M/uL (4.7-6.1) Hemoglobin 14.3 g/dL (14.0-18.0) Hematocrit 40.4 % (42-52) Mean Corpuscular Volume 86.7 fL (80-100) Mean Corpuscular Hemoglobin 30.7 pg (25-34) Mean Corpuscular Hemoglobin Concent 35.4 g/dl (32-36) Platelet Count 267 K/uL (130-400) Mean Platelet Volume 8.8 fL (7.4-10.4) Neutrophils (%) (Auto) 81.1 % Lymphocytes (%) (Auto) 13.7 % Monocytes (%) (Auto) 4.9 % Eosinophils (%) (Auto) 0.0 % Basophils (%) (Auto) 0.1 % Neutrophils # (Auto) 10.05 K/uL (1.4-6.5) Lymphocytes # (Auto) 1.69 K/uL (1.2-3.4) Monocytes # (Auto) 0.60 K/uL (0.11-0.59) Eosinophils # (Auto) 0.00 K/uL (0-0.5) Basophils # (Auto) 0.01 K/uL (0-0.2) RDW Standard Deviation 41.5 fL (36.4-46.3) RDW Coefficient of Variation 13.1 % (11.5-14.5) Immature Granulocyte % (Auto) 0.2 % Immature Granulocyte # (Auto) 0.02 K/uL (0.00-0.02) Medications Administered Medications (Trade) Dose Ordered Sig/Dixon Route Start Time Stop Time Status Last Admin Dose Admin Sodium Chloride 1,000 ml @ 999 mls/hr Q1H1M STAT IV 03/10/18 17:49 03/10/18 18:49 03/10/18 18:06 999 MLS/HR Lorazepam (Ativan Inj) 1 mg NOW STAT IV 03/10/18 17:49 03/10/18 17:53 DC 03/10/18 18:06 1 MG Departure Information Prescriptions No Active Prescriptions or Reported Meds Referrals No Doctor, Assigned (PCP) Patient Instructions [facility]
--- NOTE | 2018-03-10 18:25 | DIAGNOSTIC IMAGING REPORT ---
CHEST ONE VIEW PORTABLE HISTORY: dyspnea, atypical chest pain COMPARISON: Chest 10/29/2017. FINDINGS: The lungs are clear. Cardiac silhouette is normal in size. No pleural effusions. No pneumothorax. IMPRESSION: No acute process. Electronically signed by: Albert Dorsey M.D. 03/10/2018 6:24 PM Dictated Date/Time: 03/10/2018 6:23 PM
[2018-03-10 18:27] LABS: INR 1.1 (0.9-1.1); PTT PATIENT 25.6 SECONDS (21.0-31.0)
[2018-03-10] MEDS ORDERED: METH40TA15 PO (18:30)
[2018-03-10 18:32] LABS: ALBUMIN 4.9 gm/dl (3.4-5.0); ALT/SGPT 22 U/L (12-78); AST/SGOT 30 U/L (15-37); BLOOD UREA NITROGEN 18 mg/dl (7-18); CALCIUM 9.5 mg/dl (8.5-10.1); CARBON DIOXIDE 26 mmol/L (21-32); CREATININE 1.14 mg/dl (0.60-1.40); GLUCOSE 109 mg/dl (70-99); LIPASE 86 U/L (73-393); POTASSIUM 3.5 mmol/L (3.5-5.1); SODIUM 131 mmol/L (136-145)
--- NOTE | 2018-03-10 18:33 | EMERGENCY ROOM VISIT NOTE ---
History First contact with patient: 17:41 Chief Complaint: VOMITING Stated Complaint: CHEST PAIN,THROWING UP Nursing Triage Summary: "I started vomiting 2 days ago. I feel short of breath. I was here last month for this same thing. I have burning in my chest" patient is breathing rapidly in triage, I feel dizzy patient instructed to slow his breathing down. History of Present Illness The patient is a 47 year old male who presents to the Emergency Room via private vehicle accompanied by mother with complaints of "chest pain, vomiting" . The patient states that he started vomiting 2 days ago. He notes he feels short of breath. He states that he was here last month for very similar sensation. He also notes burning in his chest and abdomen. He notes a history of anxiety. He forgot to take his methadone tablets a day which she has been on for the past 2 years. He has associated fevers, chills, chest pain, abdominal pain, leg pain. Patient notes that he did recently have an EGD and colonoscopy 2 weeks ago which he notes were normal. He rates his overall pain as an 8/10. Review of Systems A complete 10-point Review of Systems was discussed with the patient, with pertinent positives and negatives listed in the History of Present Illness. All remaining Review of Systems questions can be considered negative unless otherwise specified. Past Medical/Surgical History Medical Problems: (1) Anxiety State Nos (2) Drug Withdrawal (3) Lumbago (4) Opioid Dependence-Unspec (5) Pneumonia, Organism Nos (6) Tobacco Use Disorder Family History Cancer Social History Smoking Status: Current Every Day Smoker Alcohol Use: occasionally Drug Use: none Marital Status: Housing Status: lives with family Occupation Status: disabled Current/Historical Medications Scheduled Methadone Hcl (Methadone Hcl), 1 DOSE PO DAILY Physical Exam Vital Signs Date Time Temp Pulse Resp B/P (MAP) Pulse Ox O2 Delivery O2 Flow Rate FiO2 03/10/18 21:58 55 03/10/18 21:20 49 16 107/48 95 Room Air 03/10/18 19:12 59 16 116/65 95 Room Air 03/10/18 18:15 61 03/10/18 18:13 96 Room Air 2.0 03/10/18 18:12 86 Room Air 03/10/18 17:50 100 Room Air 03/10/18 17:35 36.9 96 18 155/79 98 Room Air Physical Exam VITAL SIGNS - Vital signs and nursing notes were reviewed. Stable. GENERAL -47-year-old male appearing his stated age who is hyperventilating in the room, is very anxious but alert and oriented. Communicates well with provider and answers questions appropriately. SKIN - Without rashes. No meningeal or petechial rash. HEAD - NC/AT. EYES - PERRL with EOMI bilaterally. Sclera anicteric. EARS - No deformities of external structures noted on gross examination bilaterally. NOSE - Midline and without cyanosis. No epistaxis or purulent drainage noted. MOUTH/OROPHARYNX - Without perioral cyanosis. NECK - Neck with FROM. No nuchal rigidity. LUNGS - Chest wall symmetric without accessory muscle use, intercostals retractions, or central cyanosis. Normal vesicular breath sounds CTA B/L. No wheezes, rales, or rhonchi appreciated. CARDIAC - RRR with S1/S2. No murmur, rubs, or gallops appreciated. ABDOMEN - Abdominal contour normal without pulsations or visible masses. BS normoactive all four quadrants. Diffuse abdominal tenderness noted. No palpable masses, hepatosplenomegaly, or ascites noted. EXTREMITIES - No clubbing or peripheral cyanosis. No pretibial edema present. +5 /5 strength noted in UE/LE bilaterally. NEUROLOGIC - Cranial nerves II through XII grossly intact. Sensory intact to light touch throughout. PSYCH - A&Ox3 and cooperates fully with examiner. Pt is very pleasant and interacts well with examiner. Medical Decision & Procedures ER Provider Diagnostic Interpretation: CHEST ONE VIEW PORTABLE HISTORY: dyspnea, atypical chest pain COMPARISON: Chest 10/29/2017. FINDINGS: The lungs are clear. Cardiac silhouette is normal in size. No pleural effusions. No pneumothorax. IMPRESSION: No acute process. Electronically signed by: Albert Dorsey M.D. 03/10/2018 6:24 PM Dictated Date/Time: 03/10/2018 6:23 PM ABDOMINAL ULTRASOUND, RIGHT UPPER QUADRANT HISTORY: RUQ abd pain, elevated bilirubin. COMPARISON: Abdominal ultrasound 10/29/2017. FINDINGS: Pancreas: Obscured by overlying bowel gas. Liver: Mild intrahepatic bile duct dilatation. Gallbladder: There are 2 stones within the gallbladder measuring 1.7 and 1.3 cm. The technologist reported a negative sonographic Thakur's sign. CBD: 9 mm. Right kidney: No hydronephrosis. IMPRESSION: 1. Intra and extra hepatic bile duct dilatation. This is unchanged from the 11/05/2017 CT. 2. Cholelithiasis. No gallbladder wall thickening. Electronically signed by: Albert Dorsey M.D. 03/10/2018 9:48 PM Dictated Date/Time: 03/10/2018 9:45 PM CHEST CTA for PULMONARY ARTERIES CT DOSE: 285.97 mGy.cm HISTORY: Shortness of breath. Atypical chest pain. TECHNIQUE: Multiaxial CT images of the chest were performed following the intravenous administration of contrast to evaluate the pulmonary arteries. Maximal intensity projection images were also obtained. A dose lowering technique was utilized adhering to the principles of ALARA. COMPARISON STUDY: Chest CTA 08/16/2010. FINDINGS: There are healing right anterior fourth and fifth rib fractures. No acute rib fractures within the visualized osseous structures. The visualized liver, spleen, and adrenal glands are unremarkable. No pleural or pericardial effusions. No mediastinal or hilar lymphadenopathy. Right hilar lymph nodes have decreased in size compared to the prior study. No pneumothorax. Mild emphysema. Small linear scarlike density within the right upper lobe anteriorly. Mild dependent changes seen within the lower lobes posteriorly. No focal lung consolidations to suggest pneumonia. A few small linear and nodular densities within the right middle lobe also favor areas of scarring. Normal caliber thoracic aorta with no evidence for dissection. The heart is normal in size. No filling defects within the pulmonary arteries to suggest pulmonary embolus. IMPRESSION: 1. No evidence for pulmonary embolus. 2. Emphysema. 3. Healing right anterior fourth and fifth rib fractures. No acute rib fractures. No pneumothorax. Electronically signed by: Albert Dorsey M.D. 03/10/2018 10:45 PM Dictated Date/Time: 03/10/2018 10:32 PM Laboratory Results 03/10/18 17:50 Red Blood Count 4.66, Mean Corpuscular Volume 86.7, Mean Corpuscular Hemoglobin 30.7, Mean Corpuscular Hemoglobin Concent 35.4, Mean Platelet Volume 8.8, Neutrophils (%) (Auto) 81.1, Lymphocytes (%) (Auto) 13.7, Monocytes (%) (Auto) 4.9, Eosinophils (%) (Auto) 0.0, Basophils (%) (Auto) 0.1, Neutrophils # (Auto) 10.05, Lymphocytes # (Auto) 1.69, Monocytes # (Auto) 0.60, Eosinophils # (Auto) 0.00, Basophils # (Auto) 0.01 03/10/18 17:50 Test 03/10/18 17:50 03/10/18 18:02 03/10/18 20:03 White Blood Count 12.37 K/uL (4.8-10.8) Red Blood Count 4.66 M/uL (4.7-6.1) Hemoglobin 14.3 g/dL (14.0-18.0) Hematocrit 40.4 % (42-52) Mean Corpuscular Volume 86.7 fL (80-100) Mean Corpuscular Hemoglobin 30.7 pg (25-34) Mean Corpuscular Hemoglobin Concent 35.4 g/dl (32-36) Platelet Count 267 K/uL (130-400) Mean Platelet Volume 8.8 fL (7.4-10.4) Neutrophils (%) (Auto) 81.1 % Lymphocytes (%) (Auto) 13.7 % Monocytes (%) (Auto) 4.9 % Eosinophils (%) (Auto) 0.0 % Basophils (%) (Auto) 0.1 % Neutrophils # (Auto) 10.05 K/uL (1.4-6.5) Lymphocytes # (Auto) 1.69 K/uL (1.2-3.4) Monocytes # (Auto) 0.60 K/uL (0.11-0.59) Eosinophils # (Auto) 0.00 K/uL (0-0.5) Basophils # (Auto) 0.01 K/uL (0-0.2) RDW Standard Deviation 41.5 fL (36.4-46.3) RDW Coefficient of Variation 13.1 % (11.5-14.5) Immature Granulocyte % (Auto) 0.2 % Immature Granulocyte # (Auto) 0.02 K/uL (0.00-0.02) Prothrombin Time 12.0 SECONDS (9.0-12.0) Prothromb Time International Ratio 1.1 (0.9-1.1) Activated Partial Thromboplast Time 25.6 SECONDS (21.0-31.0) Partial Thromboplastin Ratio 1.0 Anion Gap 14.0 mmol/L (3-11) Est Creatinine Clear Calc Drug Dose 80.9 ml/min Estimated GFR () 87.0 Estimated GFR (Non- 75.1 BUN/Creatinine Ratio 15.5 (10-20) Calcium Level 9.5 mg/dl (8.5-10.1) Magnesium Level 1.6 mg/dl (1.8-2.4) Total Bilirubin 1.2 mg/dl (0.2-1) Aspartate Amino Transf (AST/SGOT) 30 U/L (15-37) Alanine Aminotransferase (ALT/SGPT) 22 U/L (12-78) Alkaline Phosphatase 98 U/L (45-117) Total Creatine Kinase 462 U/L (39-308) Creatine Kinase MB 3.6 ng/ml (0.5-3.6) Creatine Kinase MB Ratio 0.8 (0-3.0) Troponin I < 0.015 ng/ml (0-0.045) Total Protein 8.9 gm/dl (6.4-8.2) Albumin 4.9 gm/dl (3.4-5.0) Globulin 3.9 gm/dl (2.5-4.0) Albumin/Globulin Ratio 1.2 (0.9-2) Lipase 86 U/L (73-393) Thyroid Stimulating Hormone (TSH) 0.520 uIu/ml (0.300-4.500) Ethyl Alcohol mg/dL < 3.0 mg/dl (0-3) Urine Color YELLOW Urine Appearance CLEAR (CLEAR) Urine pH 8.0 (4.5-7.5) Urine Specific Gary 1.015 (1.000-1.030) Urine Protein NEG (NEG) Urine Glucose (UA) NEG (NEG) Urine Ketones 1+ (NEG) Urine Occult Blood NEG (NEG) Urine Nitrite NEG (NEG) Urine Bilirubin NEG (NEG) Urine Urobilinogen NEG (NEG) Urine Leukocyte Esterase NEG (NEG) Urine Opiates Screen NEG (NEG) Urine Methadone, Qualitative POS (NEG) Urine Barbiturates NEG (NEG) Urine Phencyclidine (PCP) Level NEG (NEG) Ur Amphetamine/Methamphetamine NEG (NEG) MDMA (Ecstasy) Screen NEG (NEG) Urine Benzodiazepines Screen NEG (NEG) Urine Cocaine Metabolite NEG (NEG) Urine Marijuana (THC) POS (NEG) Medications Administered Medications (Trade) Dose Ordered Sig/Dixon Route Start Time Stop Time Status Last Admin Dose Admin Sodium Chloride 1,000 ml @ 999 mls/hr Q1H1M STAT IV 03/10/18 17:49 03/10/18 18:49 DC 03/10/18 18:06 999 MLS/HR Lorazepam (Ativan Inj) 1 mg NOW STAT IV 03/10/18 17:49 03/10/18 17:53 DC 03/10/18 18:06 1 MG Medical Decision Patient was seen and evaluated as above in room C3. Review was performed of nursing notes and vital signs. After obtaining a thorough history and physical examination the above work up was performed. Review was performed a previous visit. He is quite anxious appearing in the room. IV access was established and he was given 1 mg of IV Ativan. He is reevaluated and nearly symptom-free. I suspect this likely to be all from anxiety. He did however perform medical workup to rule out any underlying emergent process. A bedside EKG was performed the first of which reveals normal sinus rhythm, rate of [address] abnormality noted. I then elected to obtain a subsequent EKG to obtain a better tracing which reveals normal sinus rhythm, and nonspecific ST abnormality and prolonged QT. He does take methadone and smokes marijuana. The chest pain is nearly gone and the abdominal pain persists. He notes this is exactly how he presented on a previous visit. Chest x-ray negative. Gallbladder ultrasound negative. CT scan of the chest to rule out PE was obtained and found to be negative. His previous CT of the abdomen was reviewed which also revealed no emergent process. Coag panel no concerning process. CBC reveals a minor leukocytosis. No concerning anemia. His metabolic panel reveals no evidence of kidney or liver failure. His total CK was slightly elevated and he was given fluids here. CK-MB and troponin negative. TSH and lipase within normal limits. Urine reveals no evidence of infection. Urine drug screen positive for marijuana and methadone which the patient is forthcoming about. I do recommend he follows up with the family doctor. He was here for numerous hours and at time of departure was beginning to feel anxious again and was given sublingual Ativan. He denies any thoughts to harm self or others. He was felt stable for outpatient management with close follow- up with the family doctor or return with worsening. He was informed that he may need a stress test if his symptoms persist but also potential treatment of his anxiety. He recently had an EGD and colonoscopy a few weeks ago which were negative. Given the workup that is been performed in the past few months as well as today I do not suspect any emergent process. I do recommend refraining from any QT prolonging agents. He will also be given a tablet of Reglan for nausea. The patient was educated upon management, had questions answered prior to discharge, and was discharged home in good condition. Case was discussed with the attending physician. I attest that I have personally reviewed the patient medication list. I attest that I have reviewed the patient's blood pressure and it was found to be slightly elevated. In the evaluation and treatment of this patient the following differential diagnoses were entertained: CO, PE, peritonitis, costochondritis, Boerhaave's syndrome, pancreatitis, Tracy-Mathew tear, acute intra-abdominal etiology, anxiety, among others. Impression Primary Impression: Vomiting Departure Information Dispostion Home / Self-Care Condition GOOD Referrals No Doctor, Assigned (PCP) Patient Instructions [facility] Additional Instructions You have been treated in the Emergency Department your Abdominal Pain, chest pain and vomiting. Laboratory results and imaging studies have ruled out any emergent causes for your abdominal pain which would warrant admission or surgery. For pain control, you can use the following [id number] medicines (if >12 yo): - Regular strength (325mg/tab) Tylenol (acetaminophen) 2 tabs every 4-6 hours as needed. Do not exceed 12 tablets in a 24 hour period. Avoid taking more than 3 grams (3000 mg) of Tylenol per day. This includes any other sources of acetaminophen you may take on a regular basis. - Regular strength (200 mg/tab) Advil (ibuprofen) 1-2 tabs every 4-6 hours as needed. Do not exceed a dose of 3200 mg per day. Drink plenty of water and stay well hydrated. As with any trip to the Emergency Department, you should follow-up with your Primary Care Provider from today's visit. Please call them as soon as possible to schedule follow-up. You may need a stress test if your symptoms persist. Please also discuss with them your potential anxiety. Return to the emergency department if your symptoms persist despite treatment plan outlined above or if the following symptoms occur: increased fevers, chills , worsening nausea/vomiting, blood in your stool or urine.
[2018-03-10 18:43] LABS: ALKALINE PHOSPHATASE 98 U/L (45-117); CKMB 3.6 ng/ml (0.5-3.6); TOTAL PROTEIN 8.9 gm/dl (6.4-8.2)
[2018-03-10] MEDS ORDERED: OPTIRAY 320 IV PRN (20:45)
--- NOTE | 2018-03-10 21:50 | DIAGNOSTIC IMAGING REPORT ---
ABDOMINAL ULTRASOUND, RIGHT UPPER QUADRANT HISTORY: RUQ abd pain, elevated bilirubin. COMPARISON: Abdominal ultrasound 10/29/2017. FINDINGS: Pancreas: Obscured by overlying bowel gas. Liver: Mild intrahepatic bile duct dilatation. Gallbladder: There are 2 stones within the gallbladder measuring 1.7 and 1.3 cm. The technologist reported a negative sonographic Thakur's sign. CBD: 9 mm. Right kidney: No hydronephrosis. IMPRESSION: 1. Intra and extra hepatic bile duct dilatation. This is unchanged from the 11/05/2017 CT. 2. Cholelithiasis. No gallbladder wall thickening. Electronically signed by: Albert Dorsey M.D. 03/10/2018 9:48 PM Dictated Date/Time: 03/10/2018 9:45 PM
--- NOTE | 2018-03-10 22:47 | DIAGNOSTIC IMAGING REPORT ---
CHEST CTA for PULMONARY ARTERIES CT DOSE: 285.97 mGy.cm HISTORY: Shortness of breath. Atypical chest pain. TECHNIQUE: Multiaxial CT images of the chest were performed following the intravenous administration of contrast to evaluate the pulmonary arteries. Maximal intensity projection images were also obtained. A dose lowering technique was utilized adhering to the principles of ALARA. COMPARISON STUDY: Chest CTA 08/16/2010. FINDINGS: There are healing right anterior fourth and fifth rib fractures. No acute rib fractures within the visualized osseous structures. The visualized liver, spleen, and adrenal glands are unremarkable. No pleural or pericardial effusions. No mediastinal or hilar lymphadenopathy. Right hilar lymph nodes have decreased in size compared to the prior study. No pneumothorax. Mild emphysema. Small linear scarlike density within the right upper lobe anteriorly. Mild dependent changes seen within the lower lobes posteriorly. No focal lung consolidations to suggest pneumonia. A few small linear and nodular densities within the right middle lobe also favor areas of scarring. Normal caliber thoracic aorta with no evidence for dissection. The heart is normal in size. No filling defects within the pulmonary arteries to suggest pulmonary embolus. IMPRESSION: 1. No evidence for pulmonary embolus. 2. Emphysema. 3. Healing right anterior fourth and fifth rib fractures. No acute rib fractures. No pneumothorax. Electronically signed by: Albert Dorsey M.D. 03/10/2018 10:45 PM Dictated Date/Time: 03/10/2018 10:32 PM
[2018-03-10] MEDS ORDERED: METOCLOPRAMIDE HCL 5 MG TAB PO STA (23:10)
[2018-03-10] MEDS ORDERED: LORAZEPAM 0.5 MG TAB SL STA (23:14)
[2018-03-10] MEDS ORDERED: EMPTY 8 DRAM VIAL ONE (23:18)
[2018-03-10 23:25] VITALS: BP 129/69; PULSE 61; O2SAT 97
== END 2018-03-10 23:26 | disposition home or self-care (01) ==
LOC: C.EDB 17:32 → C.EDC 23:26
DX: R11.10 Vomiting, unspecified (principal); F17.200 Nicotine dependence, unspecified, uncomplicated